=== PATIENT | male | born 1955 | race Caucasian/White ===

== ENCOUNTER 2018-06-24 11:27 | Emergency (ER) | payer MEDICARE, OTHER ==
[~2018-06-24] VITALS: Ht 170.2 cm; Wt 74.8 kg
[2018-06-24 11:48] VITALS: BP 134/92
== END 2018-06-24 13:07 | disposition home or self-care (01) ==
LOC: ER 11:33
DX: F20.9 Schizophrenia, unspecified (principal); Z76.0 Encounter for issue of repeat prescription